=== PATIENT | male | born 1980 | race Two or more races ===

== ENCOUNTER 2018-05-16 21:05 | Emergency (ER) | payer SELFPAY ==
[~2018-05-16] VITALS: Ht 165.1 cm; Wt 86.4 kg
[2018-05-16 22:00] VITALS: BP 125/88
[2018-05-16] MEDS ORDERED: KETOROLAC 30MG/ML VIAL IV ONE (22:30)
[2018-05-16] MEDS ORDERED: HYDROCODONE/ACETAMINOPHEN 5/325MG TABLET PO ONE (22:30)
== END 2018-05-16 23:25 | disposition left against medical advice (07) ==
LOC: ER 21:05
DX: M54.2 Cervicalgia (principal); M54.5 Low back pain; M25.512 Pain in left shoulder; V49.49XA Driver injured in collision with other motor vehicles in traffic accident, initial encounter; Y93.89 Activity, other specified; Y92.89 Other specified places as the place of occurrence of the external cause; Y99.8 Other external cause status
CPT/HCPCS: 99283